=== PATIENT | female | born 1955 | race Caucasian/White ===

== ENCOUNTER 2018-10-13 00:08 | Observation (INO) ==
--- NOTE | 2018-10-13 00:33 | ERNOTE ---
Time Seen by Provider: 10/13/18 00:23 Stated Complaint: FLU Presenting Symptoms:: cough Source: patient, family Exam Limitations: no limitations Immunizations: IMMUNIZATION HX Immunizations Up to Date Yes Hx Pneumococcal Vaccination Yes Allergies/Adverse Reactions: Allergies venlafaxine [From Effexor] Adverse Reaction (Mild, Verified 10/13/18 00:18) extreme nervousness Home Medications: HOME MEDICATIONS hydrochlorothiazide 25 mg tablet 25 mg PO DAILY #30 tab 10/05/18 [Last Taken ] - History of Present Ilness Narrative: Patient states she has had a cough for about a week gets just getting worse and or she has body aches and difficulty sleeping. She has loss of appetite Timing: getting worse Severity: moderate Frequency/Possible Cause: Reports: no prior episodes Modifying Factors - Worsens: Reports: activity, coughing, lying down Associated Symptoms: Reports: headache Review of Systems - Review of Systems Constitutional: Present: See HPI, chills, weakness, fatigue, malaise. Absent: fever EYE: Absent: vision changes ENT: Present: nasal drainage Respiratory: Present: See HPI, shortness of breath, cough Cardiology: Present: chest pain - Pressure last week Gastrointestinal/Abdominal: Present: nausea, vomiting - X1. Absent: abdominal pain Genitourinary: Present: decreased urinary output Musculoskeletal: Present: muscle pain Skin: Absent: rash Neurological: Present: headache. Absent: numbness, tingling Endocrine: Present: excessive sweating Medical History (Updated 11/24/17 @ 09:13 by Claudia Kunz RN) Anxiety and depression Onset Date: ~2013 B12 deficiency Onset Date: ~2015 Fibrocystic breast disease Onset Date: Unknown Hypertension Onset Date: ~2013 Post-menopausal Onset Date: ~2010 Surgical History: Surgical History (Updated 11/24/17 @ 09:13 by Claudia Kunz RN) H/O colonoscopy Onset Date: ~2011 H/O sigmoidoscopy Onset Date: ~1996 Benign rectal polyp removed History of colposcopy Onset Date: ~1995 History of loop electrical excision procedure (LEEP) Onset Date: ~1995 cryosurgery of cervix Onset Date: Unknown ductectomy Onset Date: ~1990 right breast-bleeding from the nipple Family History: Family History (Updated 11/24/17 @ 09:16 by Claudia Kunz RN) Aunt Breast cancer Brother Skin cancer Father Colon cancer Hypertension Grandfather , age 44 Myocardial infarction Mother Pacemaker Heart disease Uncle Pancreatic cancer Social History: Preferred Language Citizen Of [place] Smoking Status Former smoker Alcohol Use heavy (Last Updated 02/21/18 @ 16:11 by Janeth Ortega DO) No Social History Section defined Physical Exam - Physical Exam General Appearance: Present: wd/wn, alert, no apparent distress Head Exam: Present: normal inspection, no evidence of injury Eye Exam: Normal inspection: bilateral Ears, Nose, Throat: Present: nasal congestion, normal pharynx Neck: Present: normal inspection, nontender, supple Respiratory: Present: no respiratory distress, no accessory muscle use, chest nontender, lungs clear Cardiovascular/Chest: Present: regular rate, rhythm, no murmur Back Exam: Present: normal inspection, normal range of motion Extremity Exam: Present: normal inspection, normal range of motion, no edema Neurological Exam: Present: alert, oriented, normal mood/affect, no motor/sensory deficits Skin Exam: Present: normal color, warm/dry Lymphatic Exam: Present: no adenopathy Progress - Results and Orders Patient's Lab Results:: I have reviewed the patient's lab results. Results and Orders: Laboratory Tests 10/13/18 10/13/18 10/13/18 00:45 00:45 00:45 WBC 5.4 Hgb 14.0 Hct 39.0 Plt Count 165 Sodium 124 L Potassium 2.6 L D Chloride 85 L BUN 4 Creatinine 0.73 Random Glucose 121 H Calcium 8.6 Magnesium 1.6 Total Bilirubin 0.7 AST 61 H ALT 33 Albumin 3.9 Influenza Type A Ag Influenza Type B Ag 10/13/18 01:05 WBC Hgb Hct Plt Count Sodium Potassium Chloride BUN Creatinine Random Glucose Calcium Magnesium Total Bilirubin AST ALT Albumin Influenza Type A Ag Negative Influenza Type B Ag Negative - Vital Signs Patient's Vital Signs:: I have reviewed the patient's vital signs. Vital Signs: Vital Signs 10/13/18 00:12 Temperature 36.8 C Pulse Rate 106 H Respiratory Rate 18 Blood Pressure 144/96 H O2 Sat by Pulse Oximetry 96 - EKG EKG #1 EKG: nonspecific ST T wave changes, other - sinus tachycardia EKG read: Interp. by me - X-Ray X-Ray #1 X-Ray: chest Interpretation: Interp. by me X-ray Comments: No infiltrate or effusion. No pneumothorax. bony elements appear intact. - Progress/Reassessment Chief Complaint: Upper Respiratory Symptoms Progress Note-Subjective: Review of previous family practice visits shows that she was previously on hydrochlorothiazide in December 2017 she was taken off hydrochlorothiazide because it may be because of the rash she was having. She was placed on lisinopril she then began to have a cough so on February 27 she was changed from lisinopril to amlodipine. When I asked the patient why she was now taking hydrochlorothiazide she stated that she did not feel like the hydrochlorothiazide was the cause of the rash and so she just went back to taking that. She also states that she is supposed to be taking potassium but she is just forgets to take it. 10/13/18 02:[address] Dempsey about the patient's condition he agrees with admission to observation. He recommends oral potassium IV potassium and normal saline IV fluids Departure Clinical Impression: Hypokalemia, Hyponatremia, Hypochloremia - Departure Disposition: Still a patient Condition: Fair
[2018-10-13 00:48] LABS: Mean Corpuscular Hgb Conc 35.9 g/dl (32-36); Mean Platelet Volume 8.7 fl (8-12.5); Platelet Count 165 K/mm3 (150-450); Red Blood Count 4.38 M/mm3 (4.2-5.4); Red Cell Distribution Width 11.3 % (11.5-14.0); White Blood Count 5.4 K/mm3 (4.0-10.5)
[2018-10-13 00:51] LABS: Total Cells Counted 100
[2018-10-13 01:01] LABS: Albumin * 3.9 gm/dl (3.4-5.0); Anion Gap 12.4 mmol/L (6.8-13.8); BUN/Creatinine Ratio 5.5 (9.0-21.6); Bilirubin, Total 0.7 mg/dL (0.0-1.1); Ca. Corrected For Albumin 8.4 mg/dL (8.4-10.2); Calcium * 8.6 mg/dL (7.9-10.9); Carbon Dioxide 29.2 mmol/L (24-32.6); Potassium 2.6 mmol/L (3.4-4.6); Total Protein 7.8 gm/dL (6.2-8.2)
[2018-10-13 01:02] LABS: Atypical (Reactive) Lymph 2 % (0-2); Band 3 % (0-2.0); Immature Granulocyte 1 (0-1); Lymphocyte 14 % (20-51); Monocyte 9 % (0-9); Neutrophil 71 % (42-75); Neutrophil # 3.8 K/mm3 (1.3-6.0)
[2018-10-13 01:03] LABS: Dohle Bodies Trace; Platelet Estimate Normal (NORMAL)
[2018-10-13] MEDS ORDERED: NORMAL SALINE 1,000 ML IV ONE (02:04)
[2018-10-13] MEDS ORDERED: POTASSIUM BICARBONATE/CIT AC 25 MEQ TABLET.EFF PO ONE (02:04)
[2018-10-13] MEDS: POTASSIUM CHLORIDE IN WATER 100 ML IV SCH ×4 (02:19→05:35)
[2018-10-13] MEDS ORDERED: METOPROLOL TARTRATE 1 MG/ML AMPUL IV ONE (03:56)
[2018-10-13] MEDS: guaiFENesin 100 MG/5 ML SYRUP PO PRN ×2 (04:12→09:03)
[2018-10-13 07:17] LABS: Anion Gap 10.7 mmol/L (6.8-13.8); BUN/Creatinine Ratio 5.6 (9.0-21.6); Calcium * 8.3 mg/dL (7.9-10.9); Carbon Dioxide 28.7 mmol/L (24-32.6); Potassium 3.4 mmol/L (3.4-4.6)
[2018-10-13] MEDS ORDERED: NORMAL SALINE 1,000 ML IV PRN (08:22)
--- NOTE | 2018-10-13 08:41 | HP ---
Chief Complaint - Chief Complaint Date of Service: 10/13/18 Time of Service: 08:03 Chief Complaint: cough/fatigue History of Present Illness: Ange Griffith is a 62-year-old white female, patient of Dr. Ortega, with past medical history of hypertension, anxiety and depression, who was admitted on 10/13/2018 for cough and fatigue. For the last few days prior to her present admission the patient started having cough with cold-like symptoms and thinks that she got it from her who had the same signs and symptoms a few days before her. Her cough and cold started to get worse and she started to get tired and thought that she was having the flu and went to our emergency room. In our emergency room she was found to be hyponatremic, hypokalemic, and hypochloremic. Her sodium was 124, potassium 2.6, chloride 85. Her magnesium was 1.6. Her influenza A and B were negative. Her EKG showed sinus tachycardia and her chest x-ray showed no acute cardiopulmonary findings. She was then admitted for observation and started on IV fluids and potassium replacements. The patient had been on hydrochlorothiazide for many years but was stopped last year due to possible etiology of a chronic rash. She was started on lisinopril but then developed an TYSON induced cough. This was stopped around the end of January 2018 and she was started on amlodipine. For some unknown reason she did not react well with this medicine and so she went back to taking her hydrochlorothiazide and had not been taking her potassium supplement regularly. Medical History (Updated 10/13/18 @ 13:42 by Bud Dempsey MD) Alcoholism drinks 6 beers every night Anxiety and depression Onset Date: ~2013 B12 deficiency Onset Date: ~2015 Fibrocystic breast disease Onset Date: Unknown Hypertension Onset Date: ~2013 Post-menopausal Onset Date: ~2010 Surgical History: Surgical History (Updated 10/13/18 @ 08:41 by Bud Dempsey MD) H/O colonoscopy Onset Date: ~2011 H/O sigmoidoscopy Onset Date: ~1996 Benign rectal polyp removed History of colposcopy Onset Date: ~1995 History of loop electrical excision procedure (LEEP) Onset Date: ~1995 cryosurgery of cervix Onset Date: Unknown ductectomy Onset Date: ~1990 right breast-bleeding from the nipple Family History: Family History (Updated 11/24/17 @ 09:16 by Claudia Kunz RN) Aunt Breast cancer Brother Skin cancer Father Hypertension Colon cancer Grandfather , age 44 Myocardial infarction Mother Heart disease Pacemaker Uncle Pancreatic cancer Social History: Patient Lives/Resources With Spouse Utilized Preferred Language Chinese Do you have any temple or No cultural preference? Smoking Status Former smoker Have you smoked in the past 12 No months Alcohol Use heavy (Last Updated 02/21/18 @ 16:11 by Janeth Ortega DO) No Social History Section defined Review Of Systems (GEN) - Review of Systems Generalized/Overall Review: Present: Weakness, Fatigue. Absent: Chills, Fever EENTM: Absent: Blurred Vision, Double Vision Respiratory: Present: Cough. Absent: Shortness of Breath, Orthopnea, Wheezing Cardiac: Absent: Chest Pain, Edema, Palpitations Abdominal: Absent: Nausea, Vomiting Genitourinary: Absent: Urgency, Frequency Musculoskeletal: Absent: Joint Pain, Back Pain Neurological: Absent: Headache Skin: Absent: Lesions, Rash Endocrine: Absent: Intolerance to Cold, Intolerance to Heat Misc: All systems neg except as marked Immunizations: IMMUNIZATION HX Immunizations Up to Date Yes Hx Pneumococcal Vaccination Yes Allergies/Adverse Reactions: Allergies Allergy/AdvReac Type Severity Reaction Status Date / Time venlafaxine [From Effexor] AdvReac Mild extreme Verified 10/13/18 00:18 nervousness Home Medications: HOME MEDICATIONS Levofloxacin [Levaquin] 750 mg PO DAILY #5 tab 10/13/18 [Last Taken Unknown] Metoprolol Succinate [Toprol Xl] 25 mg PO DAILY #30 tablet.sa 10/13/18 [Last Taken Unknown] guaiFENesin [Robitussin] 200 mg PO Q4H PRN #1 syrup 10/13/18 [Last Taken Unknown] Exam - Exam Vital Signs: Vital Signs - Last Taken Temp 36.9 C 10/13/18 06:31 Pulse 91 10/13/18 06:31 Resp 16 10/13/18 06:31 BP 133/83 10/13/18 06:31 Pulse Ox 95 10/13/18 06:31 Constitutional: Present: Alert, Oriented x3, Cooperative ENT Exam: Present: hearing grossly normal Eye Exam: bilateral eye: normal inspection, PERRL, EOMI Neck: Present: supple. Absent: lymphadenopathy (R), lymphadenopathy (L) Respiratory: Present: normal breath sounds, No rales, No wheezing Cardiovascular/Chest: Present: regular rate, rhythm, no JVD, no murmur Abdomen: Present: Normal bowel sounds, soft, nontender, nondistended Extremity: Present: no pedal edema, no calf tenderness Diagnostic Studies: Abnormal Lab Results 10/13/18 10/13/18 10/13/18 Range/Units 00:45 00:45 07:09 MCH 32.0 H (27-31) pg RDW 11.3 L (11.5-14.0) % Band Neuts % (Manual) 3 H (0-2.0) % Lymphocytes % (Manual) 14 L (20-51) % Lymphocytes # (Manual) 0.8 L (1.5-3.5) k/mm3 Sodium 124 L 129 L (132-142) mmol/L Plasma Sodium 124 L 129 L (130-142) mmol/L Potassium 2.6 L D (3.4-4.6) mmol/L Chloride 85 L 93 L (97-106) mmol/L BUN/Creatinine Ratio 5.5 L 5.6 L (9.0-21.6) Random Glucose 121 H 119 H (70-110) mg/dL AST 61 H (0-48) U/L Laboratory Results WBC 5.4 K/mm3 (4.0-10.5) 10/13/18 00:45 RBC 4.38 M/mm3 (4.2-5.4) 10/13/18 00:45 Hgb 14.0 gm/dL (12.5-16.0) 10/13/18 00:45 Hct 39.0 % (37.0-47.0) 10/13/18 00:45 MCV 89.0 fl (78-100) 10/13/18 00:45 MCH 32.0 pg (27-31) H 10/13/18 00:45 MCHC 35.9 g/dl (32-36) 10/13/18 00:45 RDW 11.3 % (11.5-14.0) L 10/13/18 00:45 Plt Count 165 K/mm3 (150-450) 10/13/18 00:45 MPV 8.7 fl (8-12.5) 10/13/18 00:45 71 % (42-75) 10/13/18 00:45 Band Neuts % (Manual) 3 % (0-2.0) H 10/13/18 00:45 14 % (20-51) L 10/13/18 00:45 9 % (0-9) 10/13/18 00:45 1 (0-1) 10/13/18 00:45 3.8 K/mm3 (1.3-6.0) 10/13/18 00:45 0.8 k/mm3 (1.5-3.5) L 10/13/18 00:45 0.5 k/mm3 (0.0-1.0) 10/13/18 00:45 Atypic/Reactive Lymphs 2 % (0-2) 10/13/18 00:45 Trace 10/13/18 00:45 Trace 10/13/18 00:45 Normal (NORMAL) 10/13/18 00:45 Sodium 129 mmol/L (132-142) L 10/13/18 07:09 129 mmol/L (130-142) L 10/13/18 07:09 Potassium 3.4 mmol/L (3.4-4.6) D 10/13/18 07:09 Chloride 93 mmol/L (97-106) L 10/13/18 07:09 Carbon Dioxide 28.7 mmol/L (24-32.6) 10/13/18 07:09 10.7 mmol/L (6.8-13.8) 10/13/18 07:09 BUN 4 mg/dL (3-23) 10/13/18 07:09 0.72 mg/dL (0.4-1.4) 10/13/18 07:09 Est GFR (Non-Af Amer) 87 mL/min (60-130) 10/13/18 07:09 5.6 (9.0-21.6) L 10/13/18 07:09 119 mg/dL (70-110) H 10/13/18 07:09 Calcium 8.3 mg/dL (7.9-10.9) 10/13/18 07:09 Calcium Adj for Albumin 8.4 mg/dL (8.4-10.2) 10/13/18 00:45 Magnesium 1.6 mg/dL (1.2-2.8) 10/13/18 00:45 0.7 mg/dL (0.0-1.1) 10/13/18 00:45 AST 61 U/L (0-48) H 10/13/18 00:45 ALT 33 U/L (19-67) 10/13/18 00:45 84 U/L (50-170) 10/13/18 00:45 7.8 gm/dL (6.2-8.2) 10/13/18 00:45 3.9 gm/dl (3.4-5.0) 10/13/18 00:45 Influenza Type A Ag Negative (NEGATIVE) 10/13/18 01:05 Influenza Type B Ag Negative (NEGATIVE) 10/13/18 01:05 Assessment/Plan - Narrative Narrative: Her electrolyte imbalance is likely due to her diuretic hydrochlorothiazide. Coughing could be due to an upper respiratory tract infection. - Assessment/Plan (1) Hyponatremia Assessment: likely hypotonic, hypovolemic hyponatremia due to diuretic. continue with IVF. will hold her HCTZ. Problem: Resolved (2) Hypokalemia Assessment: due to diuretic. Problem: Resolved (3) Hypochloremia Assessment: due to diuretic Problem: Resolved (4) Cough Assessment: URI vs LRI. will follow up CXr official reading. Problem: Acute (5) Hypertension Assessment: hold HCTZ. Problem: Chronic Qualifiers: Hypertension type: essential hypertension Qualified Code(s): I10 - Essential (primary) hypertension
[2018-10-13] MEDS ORDERED: POTASSIUM CHLORIDE 10 MEQ TABLET.SA PO ONE (08:44)
[2018-10-13 13:20] LABS: Anion Gap 10.8 mmol/L (6.8-13.8); BUN/Creatinine Ratio 4.8 (9.0-21.6); Calcium * 8.2 mg/dL (7.9-10.9); Carbon Dioxide 26.6 mmol/L (24-32.6); Estimated Creat Clear 58.1; Potassium 3.4 mmol/L (3.4-4.6)
--- NOTE | 2018-10-13 13:42 | DS ---
(1) Hyponatremia Problem: Resolved (2) Hypokalemia Problem: Resolved (3) Hypochloremia Problem: Resolved (4) Cough Diagnosis(s): retrocardiac opacities on CXR - atelectasis vs aspiration/infection. Problem: Acute Description of Stay: Ange Griffith is a 62-year-old white female, patient of Dr. Ortega, with past medical history of hypertension, anxiety and depression, who was admitted on 10/13/2018 for cough and fatigue. For the last few days prior to her present admission the patient started having cough with cold-like symptoms and thinks that she got it from her who had the same signs and symptoms a few days before her. Her cough and cold started to get worse and she started to get tired and thought that she was having the flu and went to our emergency room. In our emergency room she was found to be hyponatremic, hypokalemic, and hypochloremic. Her sodium was 124, potassium 2.6, chloride 85. Her magnesium was 1.6. Her influenza A and B were negative. Her EKG showed sinus tachycardia and her chest x-ray showed no acute cardiopulmonary findings per ED. She was then admitted for observation and started on IV fluids and potassium replaceme nts. The patient had been on hydrochlorothiazide for many years but was stopped last year due to possible etiology of a chronic rash. She was started on lisinopril but then developed an TYSON induced cough. This was stopped around the end of January 2018 and she was started on amlodipine. For some unknown reason she did not react well with this medicine and so she went back to taking her hydrochlorothiazide and had not been taking her potassium supplement regularly. Her electrolyte imbalance were corrected. Her CXR official reading reported as subtle retrocardiac opacities, likely subsegmental atelectasis but cannot rule out infection or aspiration. Follow up CXR is recommended. I will cover with antibiotic- Levaquin. She is stable to be discharged today and follow up with her PCP Dr. Ortega in 1 week. I will leave it up to her when to do the follow CXR. Procedures Performed: none Results and Findings: Lab Pending Results 10/13/18 00:45: WBC 5.4, RBC 4.38, Hgb 14.0, Hct 39.0, MCV 89.0, MCH 32.0 H, MCHC 35.9, RDW 11.3 L, Plt Count 165, MPV 8.7, Neutrophils % (Manual) 71, Band Neuts % (Manual) 3 H, Lymphocytes % (Manual) 14 L, Monocytes % (Manual) 9, Immature Granulocytes 1, Neutrophils # (Manual) 3.8, Lymphocytes # (Manual) 0.8 L, Monocytes # (Manual) 0.5, Atypic/Reactive Lymphs 2, Toxic Vacuolation Trace, Dohle Bodies Trace, Platelet Estimate Normal 10/13/18 00:45: Sodium 124 L, Plasma Sodium 124 L, Potassium 2.6 L D, Chloride 85 L, Carbon Dioxide 29.2, Anion Gap 12.4, BUN 4, Creatinine 0.73, Est GFR (Non- Af Amer) 86, BUN/Creatinine Ratio 5.5 L, Random Glucose 121 H, Calcium 8.6, Calcium Adj for Albumin 8.4, Total Bilirubin 0.7, AST 61 H, ALT 33, Alkaline Phosphatase 84, Total Protein 7.8, Albumin 3.9 10/13/18 00:45: Magnesium 1.6 10/13/18 01:05: Influenza Type A Ag Negative, Influenza Type B Ag Negative 10/13/18 07:09: Sodium 129 L, Plasma Sodium 129 L, Potassium 3.4 D, Chloride 93 L, Carbon Dioxide 28.7, Anion Gap 10.7, BUN 4, Creatinine 0.72, Est GFR (Non-Af Amer) 87, BUN/Creatinine Ratio 5.6 L, Random Glucose 119 H, Calcium 8.3 10/13/18 13:12: Sodium 133, Plasma Sodium 133, Potassium 3.4, Chloride 99, Carbon Dioxide 26.6, Anion Gap 10.8, BUN 4, Creatinine 0.83, Est GFR (Non-Af Amer) 74, BUN/Creatinine Ratio 4.8 L, Random Glucose 123 H, Calcium 8.2 Discharge Location: Home Disposition: Home self-care Condition: Fair Discharge Activity: Activity as tolerated Discharge Diet: Low salt Referrals: Janeth Ortega DO [Primary Care Provider] - Additional Patient Instructions (free text): Follow up with Dr. Ortega in 1 week. Prescriptions (Any new or edited meds): Levofloxacin [Levaquin] 750 mg PO DAILY #5 tab guaiFENesin [Robitussin] 200 mg PO Q4H PRN #1 syrup PRN Reason: Cough Metoprolol Succinate [Toprol Xl] 25 mg PO DAILY #30 tablet. Complete Home Medications List: Complete Home Medication List: Levofloxacin [Levaquin] 750 mg PO DAILY #5 tab 10/13/18 Metoprolol Succinate [Toprol Xl] 25 mg PO DAILY #30 tablet. 10/13/18 guaiFENesin [Robitussin] 200 mg PO Q4H PRN #1 syrup 10/13/18
[2018-10-13 14:50] VITALS: BP 132/86
[2018-10-13] MEDS ORDERED: LEVOFLOXACIN 750 MG TABLET PO ONE (15:00)
[2018-10-13] MEDS ORDERED: METOPROLOL SUCCINATE 25 MG TABLET.SA PO ONE (15:02)
[2018-10-13] MEDS ORDERED: METOPROLOL SUCCINATE 25 MG TABLET.SA PO SCH (19:00)
== END 2018-10-13 15:10 | disposition home or self-care (01) ==
LOC: MS 00:08 → ER 00:08 → MS 02:38
PROVIDERS: ADMIT Internal Medicine; ATTEND Family Medicine
CPT/HCPCS: 36415; 71020; 71046; 80048; 80053; 83735; 85025; 87400; 87449; 93005; 94760; 96361; 96365; 96366; 96375; 99285; G0378